=== PATIENT | male | born 1980 | race Two or more races ===

== ENCOUNTER → 2025-05-17 | Outpatient (CLI) | payer MEDICAID, SELFPAY ==
--- NOTE | 2025-05-17 16:53 | XR_ITS ---
Examination: CT chest, without intravenous contrast. Sagittal and coronal 2-D reconstructions. Exam date and time: May 17, 2025, 1910 hours INDICATIONS: Smoking history, difficulty swallowing 2 months CTDI:vol (mGy) 10.7 DLP: (mGycm) 400 Technique: Multiple 3.0 mm axial sections of the chest to been obtained. Bone and lung density settings are obtained. Sagittal and coronal 2-D reconstructions have been obtained. Low dose protocols were performed. One or more of the following dose reduction techniques were used; automated exposure control, adjustment of the mA and/or KV according to patient size, use of iterative reconstruction technique. Findings: No thoracic aortic aneurysm dilatation Pulmonary artery segments are not enlarged. No paratracheal or tracheobronchial bronchopulmonary adenopathy. Prominent calcification left anterior descending coronary artery. No pneumonia, pulmonary edema or pulmonary mass lesions No pleural disease Heart is normal in size No visualized liver or splenic lesion No gallstones No pancreatic mass Kidneys partially visualized no hydronephrosis IMPRESSION: No thoracic aortic aneurysmal dilatation No mediastinal lymphadenopathy No pneumonia, pulmonary edema, pleural disease or pulmonary mass lesions Given the patient's presentation, consider standard fluoroscopically guided esophagram follow-up
== END | disposition home or self-care (01) ==
LOC: CCTX 16:19 → SCAT 16:19
PROVIDERS: PCP Physician Assistant; Referring Provider Physician Assistant; Visit Provider Physician Assistant
DX: R13.10 Dysphagia, unspecified (principal); F17.210 Nicotine dependence, cigarettes, uncomplicated; R06.02 Shortness of breath
CPT/HCPCS: 71250

== ENCOUNTER → 2025-06-03 | Outpatient (CLI) | payer MEDICAID, SELFPAY ==
--- NOTE | 2025-06-03 09:30 | XR_ITS ---
EXAMINATION: Esophagram standard Fluoroscopy Esophagus 16 spot fluoroscopic films Date and time: May, 10:50 a.m. INDICATIONS: Difficulty swallowing 2 months. TECHNIQUE AND FINDINGS: 16 spot fluoroscopic films of the esophagus obtained with the patient swallowing Significant esophageal dysmotility Multiple secondary tertiary esophageal contractions as well as esophageal spasm Small esophageal hernia No esophageal ulceration 40% stenosis at the gastroesophageal junction Mild intermittent gastroesophageal reflux IMPRESSION: Severe esophageal dysmotility Mild intermittent gastroesophageal reflux 40% stenosis at the gastroesophageal junction, likely reflux esophagitis Fluoroscopy 0.1 seconds radiation dose 3.23 mGy 16 spot fluoroscopic esophagitis films
== END | disposition home or self-care (01) ==
PROVIDERS: PCP Physician Assistant; Referring Provider Physician Assistant; Visit Provider Physician Assistant
DX: K21.9 Gastro-esophageal reflux disease without esophagitis (principal); K22.2 Esophageal obstruction; K22.89 Other specified disease of esophagus
CPT/HCPCS: 74220; A4649